=== PATIENT | female | born 1975 | race Caucasian/White ===

== ENCOUNTER 2019-10-06 09:33 | Outpatient (CLI) | payer BC ==
--- NOTE | 2019-10-06 09:51 | ULT ---
RIGHT AXILLA/SOFT TISSUE ULTRASOUND: HISTORY: Right axillary mass. COMPARISON: None. TECHNIQUE: Targeted sonographic imaging of the region of concern was performed. Static images are reviewed. FINDINGS: Static images of the right axilla do not demonstrate any solid or cystic masses. No evidence of lymph adenopathy. IMPRESSION: Unremarkable right axilla ultrasound. If the patient has not had a screening mammogram, consider mamm ography to evaluate the right breast and axilla. CODE T Transcribed Date/Time: 10/06/2019 9:54 AM
== END 2019-10-06 09:34 | disposition home or self-care (01) ==
LOC: ULT 09:33
PROVIDERS: ATTEND Family Medicine
DX: R22.31 Localized swelling, mass and lump, right upper limb (principal)
CPT/HCPCS: 76999

== ENCOUNTER 2020-11-15 11:18 | Outpatient (CLI) | payer BC | END 2020-11-15 11:19 | disposition home or self-care (01) | LOC: CTENTCT 11:18 | PROVIDERS: ATTEND Specialist | DX: J32.8 Other chronic sinusitis (principal) | CPT/HCPCS: 70486 ==